=== PATIENT | male | born 1935 | race Caucasian/White ===

== ENCOUNTER 2024-07-17 07:52 | Day surgery (SDC) | payer MEDICARE, BC ==
[2024-07-17] VITALS (9 sets, daily range): BP systolic 132–144; BP diastolic 72–84; PULSE 42–49; RESP 12–16; TEMP 97.9; O2SAT 95–99
[~2024-07-17] VITALS: Ht 177.8 cm; Wt 84.8 kg
--- NOTE | 2024-07-17 08:39 | ELECTROCARDIOGRAPH REPORT ---
[facility] Test Date: 2024-07-17 Test Time: 08:34:17 Pat Name: ROLAND BLACKMAN Department: [facility] Patient ID: [id number] Room: Gender: M [id number] Software Engineer: JASVIR : [id number] Requested By: SADIQ ELDER Order Number: [id number] Reading MD: Dr. MAINOR Hawkins Measurements Intervals [place] Rate: 46 P: 43 ME: 212 QRS: -24 QRSD: 112 T: -41 QT: 469 QTc: 411 Interpretive Statements Sinus bradycardia Atrial premature complex Left ventricular hypertrophy Nonspecific T abnormalities, inferior leads Electronically Signed On 07-18-2024 15:06:[address] MAINOR Hawkins Please click the below link to view image of tracing.
[2024-07-17] MEDS ORDERED: MULT-1085 PO (08:42)
[2024-07-17] MEDS ORDERED: APIX5TAB3 PO (08:42)
[2024-07-17] MEDS ORDERED: DILT180C53 PO (08:43)
[2024-07-17] MEDS ORDERED: VITA-268 PO (08:44)
[2024-07-17] MEDS ORDERED: OMEG1CAP46 PO (08:45)
[2024-07-17] MEDS ORDERED: CHLO25TA10 PO (08:52)
[2024-07-17] MEDS ORDERED: RAMI10CA78 PO (08:52)
[2024-07-17 08:53] LABS: BASOPHILS # (AUTO) 0.1 X10'3 (0-0.2); BASOPHILS % (AUTO) 1.2 % (0-1); EOSINOPHILS # (AUTO) 0.1 X10'3 (0-0.9); EOSINOPHILS % (AUTO) 1.8 % (0-6); HEMOGLOBIN 14.1 g/dl (14.0-17.9); LYMPHOCYTES % (AUTO) 31.3 % (21-51); MEAN CORPUSCULAR HEMOGLOBIN 29.8 PG (27.0-31.0); MEAN CORPUSCULAR HGB CONC 33.5 g/dL (33.0-36.5); MEAN CORPUSCULAR VOLUME 88.9 FL (78-98); MEAN PLATELET VOLUME 8.1 FL (7.4-10.4); MONOCYTES # (AUTO) 0.7 X10'3 (0-0.9); MONOCYTES % (AUTO) 11.3 % (2-12); NEUTROPHILS # (AUTO) 3.4 X10'3 (1.8-7.7); NEUTROPHILS % (AUTO) 54.4 % (42-75); PLATELET COUNT 230 X10'3 (140-440); RED BLOOD COUNT 4.73 X10'6 (4.70-6.10); WHITE BLOOD COUNT 6.3 X10'3 (4.5-11.0)
[2024-07-17 09:09] LABS: PROTHROMBIN TIME 10.6 SECONDS (9.0-12.0)
[2024-07-17 09:27] LABS: ALBUMIN 3.9 G/DL (3.4-5.0); ANION GAP 7 (8-16); BLOOD UREA NITROGEN 16 MG/DL (7-18); CALCIUM 9.1 MG/DL (8.5-10.1); CHLORIDE 103 MMOL/L (99-107); CREATININE 1.07 MG/DL (0.60-1.10); GLUCOSE 93 MG/DL (70-104); MAGNESIUM 2.1 MG/DL (1.5-2.4); POTASSIUM 4.1 MMOL/L (3.5-5.1); SODIUM 138 MMOL/L (135-145); TOTAL CARBON DIOXIDE 27.8 MMOL/L (24-32); eCRCL 49 ML/MIN; eGFR 65 ML/MIN
[2024-07-17] MEDS: diphenhydrAMINE 25mg capsule PO PRN (09:43)
[2024-07-17] MEDS: sodium bicarbonate 1meq/ml syr 150 ML in dextrose 5%-water 1,000 ML IV ONE (09:43)
[2024-07-17] MEDS: normal saline 1,000 ML IV SCH (09:43)
[2024-07-17] MEDS ORDERED: verapamil 2.5 mg/ml inj IV ONE (11:26)
[2024-07-17] MEDS ORDERED: heparin 1,000unit/ml 10ml vial 10 ML ONE (11:26)
[2024-07-17] MEDS ORDERED: iohexol 350 MG/ML 50ML vial IV ONE (11:26)
[2024-07-17] MEDS ORDERED: midazolam 1 mg/ML 2ml injection ONE ×2 (11:26→12:03)
[2024-07-17] MEDS ORDERED: LIDOcaine 1% (10mg/ml) 2ml vial ONE (11:26)
[2024-07-17] MEDS ORDERED: fentaNYL/PF 50MCG/1 ML 2ML syringe ONE (11:26)
[2024-07-17] MEDS ORDERED: iohexol 350MG/ML 100ml bottle IV ONE (11:26)
[2024-07-17] MEDS ORDERED: nitroGLYCERIN 500mcg/5mL D5W 5 ML IV ONE (11:41)
[2024-07-17] MEDS ORDERED: LIDOcaine 1% 30ml preserv. free vial ONE (12:08)
[2024-07-17] MEDS ORDERED: proCHLORperazine 10 MG/2 ml inj IV PRN (14:00)
[2024-07-17] MEDS ORDERED: HYDROcodone/acetaminophen 5mg/325mg tablet PO PRN (14:00)
[2024-07-17] MEDS ORDERED: ondansetron/PF 4mg/2ml inj IV PRN (14:00)
[2024-07-17] MEDS ORDERED: HYDROcodone/acetaminophen 10/325mg tab PO PRN (14:00)
--- NOTE | 2024-07-17 15:11 | CARDIOLOGY REPORT ---
DATE OF SERVICE: 07/17/2024 DICTATING PHYSICIAN: SADIQ ELDER DO CARDIAC CATHETERIZATION REPORT REFERRING PHYSICIAN: Lana Ariza MD. CLINICAL HISTORY: This 89-year-old man with a notable systolic murmur is thought to have a bicuspid valve and it may be stenotic. A recent echocardiogram did not provide satisfactory assessment of gradients across the valve, but left ventricular systolic function was normal. It is expected that at his age, he is likely to have severe aortic stenosis and for that reason, a right and left heart catheterization was ordered. PROCEDURES PERFORMED: * Right heart catheterization. * Left heart catheterization. * Left ventriculography. * Selective coronary arteriography. * A 75-minute of conscious sedation supervision. * Percutaneous arteriotomy closure (Perclose). DESCRIPTION OF PROCEDURE: The patient was sedated with fentanyl and Versed. He was then prepared and draped in the usual manner. A pre-placed 18-gauge Angiocath in a cubital vein was then used to place a 6-Greenlandic sheath. Through this sheath, a 6-Greenlandic Corona-Noe catheter was passed so as to perform a right heart catheterization. Cardiac output was determined by a thermal dilution technique. Left heart catheterization was performed using a double lumen Nishant catheter. Left ventriculography was performed using the pigtail component of the Paradis catheter. Coronary arteriography was performed using a 6-Greenlandic #5 left Kd catheter and a 6-Greenlandic #4 right Kd catheter for the right coronary artery. The femoral arterial site was successfully Perclosed and direct pressure was applied until hemostasis was achieved at the cubital vein site. RESULTS: HEMODYNAMIC DATA: The mean right atrial pressure was 6 mmHg. Right ventricular pressure was 28/4 mmHg. Mean pulmonary capillary wedge pressure was 17 mmHg. Pulmonary arterial pressure was 29/17 mmHg. There was a 5 mm gradient across the aortic valve with simultaneous pressure measurements. The left ventricular end diastolic pressure was 14 mmHg. Cardiac output by thermal dilution technique averaged 3.72 L/min. Aortic valve area was well above 1.5 cm2. LEFT VENTRICULOGRAM: The left ventriculogram was technically satisfactory. The ejection fraction estimated to be about 40-45%. There was moderate calcification in the region of the aortic valve and the aortic root was dilated. CORONARY ARTERIOGRAPHY: The coronary arteriograms were technically satisfactory. The patient had a right dominant system. LEFT MAIN CORONARY ARTERY: The left main was a large main stem vessel bifurcating into left anterior descending and circumflex coronary arteries. LEFT ANTERIOR DESCENDING CORONARY ARTERY: The LAD overall was a medium-sized vessel with a transapical distribution. There was a small proximal first diagonal, a tiny second diagonal that also took its origin proximally. A third medium to large diagonal, and a small fourth diagonal took their origin from the mid LAD. The origin of the third diagonal was narrowed by about 90%. There was also about a 70% narrowing at the origin of the first major septal rcp. CIRCUMFLEX CORONARY ARTERY: The circumflex was a very large main stem vessel. It was a very small, very proximal first obtuse marginal, a very large bifurcated second obtuse marginal, a small and short inferior obtuse marginal, and a medium to large posterolateral branch. There were no obstructive lesions in the circumflex coronary artery. RIGHT CORONARY ARTERY: The right coronary artery was a medium to large main stem vessel. There was a small to medium-sized posterior descending branch, a small to medium-sized first posterolateral branch, and 3 additional very tiny posterolateral branches. There were no obstructive lesions in the right coronary artery. CONCLUSIONS: * No evidence for moderate or severe aortic stenosis. The peak transvalvular gradient was only 5 mmHg. The calculated valve area was 1.66cm2 * Pulmonary arterial pressures were essentially normal. 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 * There is mild to moderate, diffuse hypokinesis involving the left ventricle. The estimated LVEF was 40-45%. RECOMMENDATIONS: Ongoing medical therapy. SADIQ ELDER DO TID: [id number] RECEIPT: [id number] PETER DUNN
== END 2024-07-17 16:00 | disposition home or self-care (01) ==
LOC: SSTAY O 07:52
PROVIDERS: ATTEND Internal Medicine Cardiovascular Disease
DX: I25.118 Atherosclerotic heart disease of native coronary artery with other forms of angina pectoris (principal); I35.0 Nonrheumatic aortic (valve) stenosis; I48.0 Paroxysmal atrial fibrillation; I10 Essential (primary) hypertension; I25.2 Old myocardial infarction; Z79.899 Other long term (current) drug therapy; Z98.890 Other specified postprocedural states
CPT/HCPCS: 36415; 80048; 83735; 85025; 85610; 93005; 93460; 99152; 99153; A6258; C1725; C1751; C1760; C1769; C1887; C1894; J1644; J2003; J2250; J3010; J3490; J7030; J7070; Q0163; Q9967; Z7610; A6402